=== PATIENT | female | born 1975 | race Caucasian/White ===

== ENCOUNTER 2022-10-26 03:18 | Emergency (ER) | payer MEDICAID, OTHER ==
[~2022-10-26] VITALS: Ht 160 cm; Wt 72.7 kg
[~2022-10-26 03:18] MED LIST: NAPR-56 PO; NO HOME MEDS
[2022-10-26 04:17] LABS: BASOPHILS # (AUTO) 0.1 X10'3 (0-0.2); BASOPHILS % (AUTO) 0.5 % (0-1); EOSINOPHILS # (AUTO) 0.2 X10'3 (0-0.9); EOSINOPHILS % (AUTO) 1.5 % (0-6); HEMATOCRIT 41.2 % (35.0-45.0); HEMOGLOBIN 13.9 g/dl (12.0-16.0); LYMPHOCYTES # (AUTO) 1.6 X10'3 (1.1-4.8); LYMPHOCYTES % (AUTO) 13.1 % (21-51); MEAN CORPUSCULAR HEMOGLOBIN 33.2 PG (27.0-31.0); MEAN CORPUSCULAR HGB CONC 33.8 g/dL (33.0-36.5); MEAN CORPUSCULAR VOLUME 98.1 FL (78-98); MEAN PLATELET VOLUME 8.2 FL (7.4-10.4); MONOCYTES # (AUTO) 0.9 X10'3 (0-0.9); MONOCYTES % (AUTO) 7.8 % (2-12); NEUTROPHILS # (AUTO) 9.2 X10'3 (1.8-7.7); NEUTROPHILS % (AUTO) 77.1 % (42-75); PLATELET COUNT 297 X10'3 (140-440); RED CELL DISTRIBUTION WIDTH 13.3 % (11.5-14.5); WHITE BLOOD COUNT 11.9 X10'3 (4.5-11.0)
[2022-10-26 04:30] LABS: ALANINE AMINOTRANSFERASE 31 U/L (12-78); ALBUMIN 3.5 G/DL (3.4-5.0); ALBUMIN/GLOBULIN RATIO 0.9 (1.1-1.5); ALKALINE PHOSPHATASE 102 IU/L (46-116); ANION GAP 9 (8-16); ASPARTATE AMINO TRANSFERASE 13 U/L (10-37); BILIRUBIN,TOTAL 0.2 MG/DL (0.1-1.0); BLOOD UREA NITROGEN 19 MG/DL (7-18); CALCIUM 8.9 MG/DL (8.5-10.1); CHLORIDE 106 MMOL/L (99-107); GLUCOSE 139 MG/DL (70-104); LIPASE 131 U/L (73-393); SODIUM 140 MMOL/L (135-145); TOTAL CARBON DIOXIDE 25.4 MMOL/L (24-32); TOTAL PROTEIN 7.2 G/DL (6.4-8.2); eGFR 59 ML/MIN
[2022-10-26] MEDS ORDERED: normal saline 1000ML IV soln IVB ONE (04:50)
[2022-10-26] MEDS ORDERED: iohexol 300mg/ml 100ml inj. ONE (05:04)
[2022-10-26 06:17] LABS: URINE HCG NEGATIVE (NEG)
[2022-10-26 06:31] LABS: CLARITY,URINE SLIGHTLY CLOUDY (Clear); COLOR,URINE YELLOW (Yellow); GLUCOSE, URINE NEGATIVE (Neg); KETONES,URINE NEGATIVE (Neg); LEUKOCYTE ESTERASE ,URINE NEGATIVE (Neg); NITRITES, URINE NEGATIVE (Neg); OCCULT BLOOD,URINE LARGE (Neg); PROTEIN,URINE NEGATIVE (Neg); UROBILINOGEN,URINE 0.2 E.U/dL (0.2-1.0)
[2022-10-26 06:47] LABS: UA COLLECTION TYPE CLN CATCH MIDSTREAM
[2022-10-26 06:50] LABS: RBC,URINE 50-100 /HPF (0-2)
[2022-10-26 06:51] LABS: BACTERIA,URINE NONE SEEN /HPF (Neg); MUCUS STRANDS FEW /LPF (Neg); SQUAMOUS EPITHELIAL CELL,UR MODERATE /LPF (FEW); WBC,URINE 0-4 /HPF (0-4)
--- NOTE | 2022-10-26 07:10 | NUR ---
[id number] I have reviewed and agree with all interventions, assessments performed and documented by BU[facility] Call.
[2022-10-26] MEDS ORDERED: DICY10CA14 PO (07:42)
[2022-10-26 07:56] VITALS: BP 135/89
== END 2022-10-26 07:59 | disposition home or self-care (01) ==
LOC: ER 03:19
DX: R10.9 Unspecified abdominal pain (principal); M54.6 Pain in thoracic spine; R11.0 Nausea; F17.200 Nicotine dependence, unspecified, uncomplicated; Z90.710 Acquired absence of both cervix and uterus; Z98.51 Tubal ligation status; Z72.89 Other problems related to lifestyle; Z91.040 Latex allergy status; Z79.899 Other long term (current) drug therapy
CPT/HCPCS: 36415; 74177; 80053; 81001; 81025; 83690; 85025; 96360; 99285; J3490; J7030; Q9967

== ENCOUNTER 2023-02-08 15:24 | Emergency (ER) | payer MEDICAID ==
[~2023-02-08] VITALS: Ht 160 cm; Wt 72.7 kg
[~2023-02-08 15:24] MED LIST changes: +DICY10CA14 PO
[2023-02-08 15:30] VITALS: BP 121/81
[2023-02-08] MEDS ORDERED: LIDO20SO16 PO (16:30)
[2023-02-08] MEDS ORDERED: PENI500T2 PO (16:30)
[2023-02-08] MEDS ORDERED: dexamethasone sod phosphate 10mg/ml inj IM STA (16:41)
== END 2023-02-08 16:56 | disposition home or self-care (01) ==
LOC: ER 15:24
DX: J02.0 Streptococcal pharyngitis (principal); Z91.040 Latex allergy status; Z88.8 Allergy status to other drugs, medicaments and biological substances; Z79.899 Other long term (current) drug therapy; Z79.1 Long term (current) use of non-steroidal anti-inflammatories (NSAID)
CPT/HCPCS: 87880; 96372; 99283; J1100

== ENCOUNTER 2023-05-31 17:24 | Emergency (ER) | payer MEDICAID ==
[~2023-05-31] VITALS: Ht 160 cm; Wt 62.0 kg
[~2023-05-31 17:24] MED LIST changes: +DICY-19 PO; -DICY10CA14 PO; +LIDO20SO16 PO
[2023-05-31 17:25] VITALS: TEMP 97.7
[2023-05-31 18:35] VITALS: BP 126/82; PULSE 92; O2SAT 98
[2023-05-31] MEDS ORDERED: HYDROcodone/acetaminophen 10/325mg tab PO ONE (18:45)
[2023-05-31 19:49] LABS: ALANINE AMINOTRANSFERASE 35 U/L (12-78); ALBUMIN 3.2 G/DL (3.4-5.0); ALBUMIN/GLOBULIN RATIO 0.9 (1.1-1.5); ALKALINE PHOSPHATASE 101 IU/L (46-116); AMYLASE 11 U/L (25-115); ANION GAP 8 (8-16); ASPARTATE AMINO TRANSFERASE 23 U/L (10-37); BILIRUBIN,TOTAL 0.3 MG/DL (0.1-1.0); BLOOD UREA NITROGEN 11 MG/DL (7-18); BUN/CREATININE RATIO 15.5 (10.0-20.0); CALCIUM 9.1 MG/DL (8.5-10.1); CHLORIDE 107 MMOL/L (99-107); CREATININE 0.71 MG/DL (0.40-0.90); GLUCOSE 128 MG/DL (70-104); LIPASE 67 U/L (73-393); POTASSIUM 3.1 MMOL/L (3.5-5.1); SODIUM 143 MMOL/L (135-145); TOTAL CARBON DIOXIDE 28.1 MMOL/L (24-32); TOTAL PROTEIN 6.8 G/DL (6.4-8.2); eCRCL 79 ML/MIN; eGFR 87 ML/MIN
[2023-05-31] MEDS ORDERED: ibuprofen 200mg tablet PO ONE (19:50)
[2023-05-31 19:58] VITALS: RESP 16
--- NOTE | 2023-05-31 20:01 | NUR ---
U/A not indicated at this time, Dr Ramos aware
[2023-05-31] MEDS ORDERED: HYDR-3972 PO (20:05)
[2023-05-31 20:06] LABS: BASOPHILS # (AUTO) 0.1 X10'3 (0-0.2); BASOPHILS % (AUTO) 0.9 % (0-1); EOSINOPHILS # (AUTO) 0.1 X10'3 (0-0.9); EOSINOPHILS % (AUTO) 1.2 % (0-6); HEMATOCRIT 41.2 % (35.0-45.0); LYMPHOCYTES # (AUTO) 2.3 X10'3 (1.1-4.8); LYMPHOCYTES % (AUTO) 25.9 % (21-51); MEAN CORPUSCULAR HEMOGLOBIN 34.1 PG (27.0-31.0); MEAN CORPUSCULAR VOLUME 100.2 FL (78-98); MEAN PLATELET VOLUME 8.6 FL (7.4-10.4); MONOCYTES # (AUTO) 0.7 X10'3 (0-0.9); MONOCYTES % (AUTO) 8.1 % (2-12); NEUTROPHILS # (AUTO) 5.6 X10'3 (1.8-7.7); NEUTROPHILS % (AUTO) 63.9 % (42-75); PLATELET COUNT 266 X10'3 (140-440); RED BLOOD COUNT 4.11 X10'6 (4.20-5.60); RED CELL DISTRIBUTION WIDTH 13.6 % (11.5-14.5); WHITE BLOOD COUNT 8.7 X10'3 (4.5-11.0)
== END 2023-05-31 21:08 | disposition home or self-care (01) ==
LOC: ER 17:24
DX: S52.121A Displaced fracture of head of right radius, initial encounter for closed fracture (principal); X58.XXXA Exposure to other specified factors, initial encounter; Y93.89 Activity, other specified; Y92.89 Other specified places as the place of occurrence of the external cause; Y99.8 Other external cause status
CPT/HCPCS: 29105; 36415; 71046; 71250; 73080; 73090; 73130; 80053; 82150; 83690; 85025; 93005; 99285; A4565; A6449

== ENCOUNTER 2023-06-09 18:54 | Emergency (ER) | payer MEDICAID ==
[~2023-06-09] VITALS: Ht 160 cm; Wt 63.0 kg
[~2023-06-09 18:54] MED LIST changes: +HYDR-3972 PO
[2023-06-09 19:52] VITALS: BP 157/102; PULSE 99; TEMP 98.4; O2SAT 99
[2023-06-09] MEDS ORDERED: PRED20TA PO (21:28)
[2023-06-09 21:34] VITALS: RESP 18
[2023-06-09] MEDS ORDERED: ketorolac trometh. 30mg/ml inj. IM ONE (21:35)
== END 2023-06-09 21:42 | disposition home or self-care (01) ==
LOC: ER 18:54
DX: S52.121G Displaced fracture of head of right radius, subsequent encounter for closed fracture with delayed healing (principal); X58.XXXD Exposure to other specified factors, subsequent encounter; Z91.040 Latex allergy status; Z79.899 Other long term (current) drug therapy
CPT/HCPCS: 96372; 99283; J1885

== ENCOUNTER 2025-05-23 03:28 | Emergency (ER) | payer MEDICAID ==
[~2025-05-23] VITALS: Ht 160 cm; Wt 55.8 kg
[~2025-05-23 03:28] MED LIST changes: -HYDR-3972 PO
[2025-05-23 03:41] VITALS: TEMP 96.8
--- NOTE | 2025-05-23 04:32 | Physician Documentation ---
History of Present Illness ~ Chief Complaint: Ear Pain Stated Complaint: LEFT EAR PAIN Time Seen by MD: 04:31 Primary Medical Doctor: [facility] HPI Patient presents to the emergency room for evaluation of left ear pain for the past few days. She reports no traumas or swimming. She states this swelling in her external auditory canal he will become significant enough so that she can not get a Q-tip in it. No fevers Medication Reconciliation Allergies: Coded Allergies: latex (Verified Allergy, Unknown, 05/23/25) Scheduled Lidocaine Hcl (Xylocaine Viscous), 5 ML PO Q2H PRN SORE THROAT Naproxen (NAPROSYN tablet), 500 MG PO BID Scheduled PRN Dicyclomine HCl (Dicyclomine HCl), 1 CAP PO Q6H PRN for pain Miscellaneous Medications Home Med List (No Home Medications), (Reported) Past Medical History Past Medical History: No Pertinent History Past Surgical History: hysterectomy, tubal ligation Alcohol Use: Occasionally Drug Use: none Lives In: Home Occupation: employed Review of Systems ROS All review of systems negative except as per HPI Physical Exam Vital Signs: Temperature: 96.8, Source: Temporal, Heart Rate: 98, Respiratory Rate: 15, BP: 131/86, Pulse Oximetry: 97, Weight: 55.800 Physical Exam General: Patient is awake, alert, oriented x4 in no acute distress Head: Normocephalic and atraumatic. Eyes: Conjunctival normal. EOMI. PERRL. ENT: Mucous membranes moist. Right tympanic membrane clear left external auditory canal with significant swelling without drainage. Unable to appreciate tympanic membrane. Pain with manipulation of left pinna. No tenderness to palpation to bilateral mastoid process Neck: Supple, trachea is midline. Chest: Clear to auscultation bilaterally without rales, rhonchi, or wheezes. T here is no accessory muscle use or retractions. Cardiac: RRR without murmurs, gallops, or rubs. Progress Results/Orders Results/Orders Vital Signs 05/23/25 03:41 Temp 96.8 Pulse 98 Resp 15 B/P (MAP) 131/86 Pulse Ox 97 Medical Decision Making Findings Patient presents to the emergency room for evaluation of ear pain. Differentials include but are not limited to otitis externa, otitis interna, mastoiditis, Eustachian tube dysfunction. Physical exam is consistent with otitis externa. I can not appreciate tympanic membrane however that has no drainage and I do not suspect ruptured tympanic membrane. No tenderness to pa lpation over mastoid process and I do not suspect mastoiditis. Departure Disposition: HOME / SELF CARE / HOMELESS Impression: Primary Impression: Otitis externa Condition: Stable Discharge Instructions: Earache, Adult Referrals: NO PRIMARY CARE PROVIDER (PCP) Prescriptions Ciprofloxacin Hcl/Hc Otic Susp* (Cipro Hc Otic Susp*) 10 Ml Bottle 3 DROP LEFT EAR Q12H for 7 Days, #10 ML Prov: FILEMON CHAUHAN MD 05/23/25 Education Educated: Patient Educated regarding: diagnosis, treatment, need for follow up Signature Scribe Signature: No scribe Attestation: The note accurately reflects work and decisions made by me.Filemon Chauhan MD 05/23/25 04:41 FILEMON CHAUHAN MD May 23, 2025 04:32
[2025-05-23] MEDS ORDERED: neomy sulf/polymyx B sulf/HC otic soln 10ml LEFT EAR ONE (04:35)
[2025-05-23] MEDS ORDERED: CIPR10DR LEFT EAR (04:41)
[2025-05-23] MEDS: CIPROFLOXACIN HCL/DEXAMETH 7.5 ML DROPS.SUSP EACH EAR ONE (05:12)
[2025-05-23 05:18] VITALS: BP 130/88; PULSE 78; RESP 16; O2SAT 99
[2025-05-23] MEDS ORDERED: CIPROFLOXACIN HCL/DEXAMETH 7.5 ML DROPS.SUSP EACH EAR SCH (08:00)
== END 2025-05-23 05:19 | disposition home or self-care (01) ==
LOC: ER 03:29
DX: H60.92 Unspecified otitis externa, left ear (principal); Z90.710 Acquired absence of both cervix and uterus; Z91.040 Latex allergy status; Z79.899 Other long term (current) drug therapy; Z72.89 Other problems related to lifestyle
CPT/HCPCS: 99283

== ENCOUNTER 2025-06-11 01:13 | Emergency (ER) | payer MEDICAID ==
[~2025-06-11] VITALS: Ht 160 cm; Wt 72.7 kg
--- NOTE | 2025-06-11 05:31 | Physician Documentation ---
History of Present Illness ~ Chief Complaint: Ear Pain Stated Complaint: EAR COMPLICATION Time Seen by MD: 05:27 OK to notify your PCP?: Yes Primary Medical Doctor: [facility] Source: patient, RN/, RN notes reviewed, old records Mode of Arrival: POV, Ambulatory Exam Limitations: no limitations HPI BED 8 This patient is a 49 y/o female who presents to ED with chief complaint of left ear pain. Patient reports this ear pain has been ongoing for the past 2 weeks. Patient was seen here on 05/23/2025 for similar symptoms and diagnosed with otitis externa, prescribed Ciprofloxacin Otic. She states she used the eardrops with no improvement. She has been using ibuprofen for pain with minimal relief. She denies any associated symptoms such as sore throat or fevers. Patient has been having recurrent ear infections with no known cause. She denies frequent swimming. Denies history of diabetes. Not taking steroids. Patient denies any other associated symptoms at this time. Patient denies any alleviating or exacerbating factors. Medication Reconciliation Allergies: Coded Allergies: latex (Verified Allergy, Unknown, 05/23/25) Scheduled Ciprofloxacin Hcl/Hc Otic Susp* (Cipro Hc Otic Susp*), 3 DROP LEFT EAR Q12H Lidocaine Hcl (Xylocaine Viscous), 5 ML PO Q2H PRN SORE THROAT Naproxen (NAPROSYN tablet), 500 MG PO BID Scheduled PRN Dicyclomine HCl (Dicyclomine HCl), 1 CAP PO Q6H PRN for pain Miscellaneous Medications Home Med List (No Home Medications), (Reported) Past Medical History Past Medical History: No Pertinent History Past Surgical History: hysterectomy, tubal ligation Smoking Status: Current every day smoker Alcohol Use: Occasionally Drug Use: none Lives In: Home Occupation: employed Review of Systems All Other Systems at this time: Reviewed and Negative ROS As stated in the HPI above, otherwise all other systems have been reviewed and negative. Physical Exam Vital Signs: RN Vital Signs have been reviewed: Yes, Temperature: 98.5, Source: Oral, Heart Rate: 74, Respiratory Rate: 16, BP: 132/74, Pulse Oximetry: 99, Weight: 72.730 Oxygen Flow Rate: 0 Physical Exam General: The patient is well developed, well nourished, nontoxic appearing and is in no acute distress. Skin: [place], warm and dry with no rashes. HEENT: Head was normocephalic and atraumatic. Eyes - pupils equal, round, reactive to light and accommodation. Extraocular movements were intact. Conjunctivae were nonicteric. Ears - Irritation of the left external auditory canal with some white discharge from the left ear. The mouth and oropharynx were clear with moist mucous membranes. There were no pharyngeal exudates or erythema. Neck: Supple and nontender. There was no jugular venous distention, lymphadenopathy, thyromegaly or masses. Chest: Clear to auscultation bilaterally without wheezes, rales or rhonchi. No accessory muscle use. No dullness to percussion. Heart: Rate regular and rhythmic. S1, S2. No murmurs. Palpation of the chest wall was normal. No rubs or thrills. Abdomen: Soft, nontender and nondistended. Positive bowel sounds. No guarding or rebound. No hepatosplenomegaly or palpable masses. Extremities: No cyanosis, clubbing or edema. The patient moves all extremities. Pulses were equal and symmetric. Neurologic: Cranial nerves II-XII were intact. Sensation was intact to light touch throughout. Motor strength was 5/5 in all four extremities. Deep tendon reflexes were intact in both upper and lower extremities. Psychologic: The patient was oriented to person, place and time. The patient demonstrated appropriate judgement and insight. Progress Results/Orders Reviewed/noted all lab results: Yes Results/Orders Completed Orders - GUSTABO SCOTT MD Fluconazole Tablet (Diflucan Tablet) (06/11/25 05:35) Ciprofloxacin Ophth Drops (Ciloxan 0.3% (06/11/25 05:35) Medications Received in ER Medications (Trade) Dose Ordered Sig/Melissa Route PRN Reason Start Time Stop Time Status Last Admin Dose Admin (Diflucan tablet) 200 mg ONCE ONCE PO 06/11/25 05:35 06/11/25 05:36 DC 06/11/25 05:44 200 MG (Ciloxan 0.3% ophth drops) 2 drp ONCE ONCE EACH EAR 06/11/25 05:35 06/11/25 05:40 DC 06/11/25 06:14 2 DRP Vital Signs 06/11/25 06/11/25 06/11/25 06/11/25 01:16 01:48 01:55 04:36 Temp 98.5 Pulse 89 80 74 Resp 16 16 16 16 B/P (MAP) 151/91 138/80 (99) 132/74 (93) Pulse Ox 98 99 99 O2 Flow Rate 0 06/11/25 05:46 Temp 98.1 Pulse 70 Resp 16 B/P (MAP) 124/80 Pulse Ox 99 Re-Evaluation Re-Evaluation : Re-Evaluation: Improved Progress Patient was seen and examined. Patient is given reassurance. Patient received a dose of Diflucan. Having recurrent episodes of otitis externa. No exposure to water. No other yeast infections. Nondiabetic. Patient received ear drops. Patient received a wick to the left ear ear drops was applied to the left ear. Patient was also told to apply a single dropped to the right ear every other day as needed more for preventative treatment. Otherwise follow up with the ears nose and throat possible cholestoma was discussed with the patient. And possible ENT follow up but patient needs to see the primary care physician for referral. Patient was encouraged to return if any worsening symptoms fevers or or concern Medical Decision Making Additional info obtained from: old records Ear Diff. Dx: Considerations: Include: Cerumen impaction, Foreign body, Otitis externa, Otitis media, Other Departure Time of Disposition: 05:35 Disposition: 01 HOME / SELF CARE / HOMELESS Impression: Primary Impression: Left otitis externa Qualified Codes: H60.92 - Unspecified otitis externa, left ear Condition: Guarded Discharge Instructions: Otitis Externa Additional Instructions: Use antibiotics as prescribed, twice a day in left ear. I also recommend you follow up with your regular doctor and discuss referral to ENT specialist to further investigate the cause of your frequent ear infections. Referrals: NO PRIMARY CARE PROVIDER (PCP) Prescriptions Ciprofloxacin Hcl/Hc Otic Susp* (Cipro Hc Otic Susp*) 10 Ml Bottle 3 DROP LEFT EAR Q12H for 7 Days, #10 ML Prov: GUSTABO SCOTT MD 06/11/25 Education Educated: Patient Educated regarding: diagnosis, need for follow up, other Signature Scribe Signature: Scribed for Gustabo Scott MD by Gustabo Scott MD . 06/11/25 05:35 Attestation: The note accurately reflects work and decisions made by me.Gustabo Scott MD 06/11/25 06:23 GUSTABO SCOTT MD Jun 11, 2025 05:31
[2025-06-11 05:46] VITALS: BP 124/80; PULSE 70; RESP 16; TEMP 98.1; O2SAT 99
[2025-06-11] MEDS ORDERED: CIPR10DR LEFT EAR (05:47)
[2025-06-11] MEDS: ciprofloxacin 0.3% 2.5ml ophthalmic solution EACH EAR ONE (06:14)
== END 2025-06-11 06:19 | disposition home or self-care (01) ==
LOC: ER 01:14
DX: H60.92 Unspecified otitis externa, left ear (principal); F17.200 Nicotine dependence, unspecified, uncomplicated; Z91.040 Latex allergy status; Z90.710 Acquired absence of both cervix and uterus; Z79.899 Other long term (current) drug therapy; Z72.89 Other problems related to lifestyle
CPT/HCPCS: 99283